=== PATIENT | female | born 1970 | race Caucasian/White ===

== ENCOUNTER 2016-06-07 20:45 | Emergency (ER) | payer OTHER ==
[~2016-06-07] VITALS: Ht 165.1 cm; Wt 117.0 kg
[~2016-06-07 20:45] MED LIST: ACET-1256 PO; LISI20TA3 PO; NPR500 PO; TOPI50TA16 PO
[2016-06-07 20:48] VITALS: TEMP 36.8; Ht 165.1 cm; Wt 117.0 kg
--- NOTE | 2016-06-07 21:12 | EMERGENCY ROOM VISIT NOTE ---
ED Visit Note First contact with patient: 20:52 CHIEF COMPLAINT: Right arm pain HISTORY OF PRESENT ILLNESS: This 45-year-old female patient presents to the emergency department ambulatory complaining of pain in the right arm. The patient states that she is a [employer] and while she was at work today and lifted something, she developed right upper arm pain. She describes the pain as a pulling sensation. She rates it an 8/10. The patient has taken no medication for relief of the pain. The patient does not have any numbness or tingling. The patient denies any other injuries. REVIEW OF SYSTEMS: A 6 system review of systems was completed with positives and pertinent negatives listed in the HPI. ALLERGIES: No known drug allergies MEDICATIONS: Prinivil, Topamax, Naprosyn PMH: No significant past medical history. SOCIAL HISTORY: The patient lives locally with family. PHYSICAL EXAM: Vital Signs: Reviewed Nurse's notes, vital signs stable. GENERAL : This is a 45-year-old female, in no acute distress, well-developed, well- nourished. SKIN: The skin was without rashes, erythema, edema, warmth, or bruising. Capillary reflex less than 3 seconds. MUSCULOSKELETAL: There is tenderness over the mid right humerus. There is no deformity, ecchymosis or swelling. There is no tenderness of the elbow or shoulder. Full range of motion of the elbow and shoulder. Radial pulse 2+. NEURO: Patient was alert and oriented to person place and time. Normal sensation to light and sharp touch. RADIOGRAPHIC FINDINGS: RIGHT HUMERUS 2 VIEWS CLINICAL HISTORY: Right arm pain. Lifting injury. FINDINGS: AP and lateral views of the right humerus are obtained. No prior studies are available for comparison at the time of dictation. The skeletal structures are well mineralized. No fracture is seen. The shoulder and elbow joints are grossly maintained. The overlying soft tissues are within normal limits. Partially imaged right lung appears clear. IMPRESSION: Unremarkable radiographic assessment of the right humerus. EMERGENCY DEPARTMENT COURSE: I examined the patient. An x-ray of the right humerus was reviewed myself and read by radiology and shows no acute findings. The patient likely has a muscle strain. She was placed in an arm sling. Conservative measures were discussed. The patient has seen orthopedics in the past and was instructed to follow-up with them if she has persistent symptoms. The patient was discharged home in stable condition. DIAGNOSIS: Right arm pain Problem List Surgical Problems: (1) History of tubal ligation Status: Resolved Current/Historical Medications Scheduled Amlodipine (Norvasc), 10 MG PO DAILY Lisinopril (Prinivil), 20 MG PO DAILY Scheduled PRN Acetaminophen (Tylenol), 1,000 MG PO Q6 PRN for Pain Allergies Coded Allergies: No Known Allergies (Unverified , 06/07/16) Vital Signs Date Time Temp Pulse Resp B/P Pulse Ox O2 Delivery O2 Flow Rate FiO2 06/07/16 20:48 36.8 101 20 185/109 98 Room Air Departure Information Impression Primary Impression: Arm pain, right Dispostion Home / Self-Care Condition GOOD Referrals Carine Willis C.R.N.P (PCP) Patient Instructions My [facility] Additional Instructions You have been treated in the Emergency Department for Arm Pain. For pain control, you can use the following [id number] medicines (if >12 yo): - Regular strength (325mg/tab) Tylenol (acetaminophen) 2 tabs every 4-6 hours as needed. Do not exceed 12 tablets in a 24 hour period. Avoid taking more than 4 grams (4000 mg) of Tylenol per day. This includes any other sources of acetaminophen you may take on a regular basis. - Regular strength (200 mg/tab) Advil (ibuprofen) 1-2 tabs every 4-6 hours as needed. Do not exceed a dose of 3200 mg per day. If this is a recent injury (<24 hrs), ice can be applied to the area of pain for the first 3 days to help decrease pain and inflammation. Wear the arm sling as needed until follow-up with orthopedics or your primary care provider. Return to the Emergency Department if your current symptoms worsen despite treatment course outlined above, or if you develop any of the following symptoms : intractable pain despite aforementioned treatment course or new onset of numbness or tingling of the fingers.
[2016-06-07] MEDS ORDERED: AMLO-114 PO (21:27)
--- NOTE | 2016-06-07 21:41 | DIAGNOSTIC IMAGING REPORT ---
RIGHT HUMERUS 2 VIEWS CLINICAL HISTORY: Right arm pain. Lifting injury. FINDINGS: AP and lateral views of the right humerus are obtained. No prior studies are available for comparison at the time of dictation. The skeletal structures are well mineralized. No fracture is seen. The shoulder and elbow joints are grossly maintained. The overlying soft tissues are within normal limits. Partially imaged right lung appears clear. IMPRESSION: Unremarkable radiographic assessment of the right humerus. Electronically signed by: Jose Wooten M.D. 06/07/2016 9:39 PM Dictated Date/Time: 06/07/2016 9:38 PM
[2016-06-07 22:08] VITALS: BP 180/100; PULSE 92; O2SAT 98
== END 2016-06-07 22:09 | disposition home or self-care (01) ==
LOC: C.EDB 20:46 → C.EDD 22:09
DX: M79.601 Pain in right arm (principal); Z79.899 Other long term (current) drug therapy

== ENCOUNTER → 2016-06-10 | Outpatient (CLI) | payer OTHER ==
[~2016-06-10] MED LIST changes: +AMLO-114 PO; -NPR500 PO; -TOPI50TA16 PO
--- NOTE | 2016-06-10 15:58 | DIAGNOSTIC IMAGING REPORT ---
RIGHT SHOULDER MIN 2 VIEWS ROUTINE CLINICAL HISTORY: SHOULDER STRAIN Right pain COMPARISON: None. DISCUSSION: The bones and joint spaces appear intact. There is no evidence of fracture, dislocation or bony disease. There is no evidence for soft tissue swelling. IMPRESSION: Negative study. Electronically signed by: Mikael Ambrocio M.D. 06/10/2016 3:56 PM Dictated Date/Time: 06/10/2016 3:56 PM
== END | disposition home or self-care (01) ==
LOC: C.LABPVFM 15:37
PROVIDERS: ATTEND Nurse Practitioner
DX: S46.919A Strain of unspecified muscle, fascia and tendon at shoulder and upper arm level, unspecified arm, initial encounter (principal); X58.XXXA Exposure to other specified factors, initial encounter